=== PATIENT | male | born 1945 | race African-American/Black ===

== ENCOUNTER 2017-04-08 12:39 | Inpatient (IN) | payer OTHER, MEDICARE ==
[~2017-04-08] VITALS: Ht 165.1 cm; Wt 98.0 kg
[~2017-04-08 12:39] MED LIST: ACTOS30 MG; ANTIVERT25 MG PO; ASPIR-LOW81 MG PO; ASPIR-TRIN325 M1 PO; CIPRO500 MG PO; CLOPIDOGREL75 MG PO; DELTASONE20 M1 PO; DIOVAN HCT 11 TABLET PO; DIOVAN HCT 81 TABLET; GLIMEPIRIDE4 MG; GLIMEPIRIDE4 MG PO; HYDROCODON-ACE1 EAC7 PO; HYDROCODON-ACE1 EACH; INDOMETHACIN 25 MG; INDOMETHACIN25 MG PO; JANUVIA100 MG PO; K-DUR20 MEQ PO; LEVEMIR FL100 UNIT/1 SC; LEVOCETIRIZINE D5 MG; LEVOCETIRIZINE D5 MG PO; LISINOPRIL10 MG PO; LOPRESSOR25 MG PO; LOVAZA1 GM; LOVAZA1 GM PO; MECLIZINE HCL25 MG; MECLIZINE HCL25 MG PO; METFORMIN HCL500 M1 PO; NITROSTAT0.4 MG; PLAVIX75 MG PO; POTASSIUM CHLO10 ME3; TOPROL XL25 MG PO; VIAGRA50 MG; ZANTAC150 MG PO; ZETIA10 MG; ZETIA10 MG PO; [UNRECOGNIZED DRUG - SUPPLY]
[2017-04-08 13:18] LABS: HEMATOCRIT 42.6 % (38.0-50.0); MCH 28.3 PG (29.0-34.0); MCHC 33.3 G/DL (30.0-36.0); PLATELET COUNT 153 K/uL (156-360); RBC DIS.WIDTH-CV 13.5 % (11.8-14.6); RED BLOOD COUNT 5.01 M/uL (4.00-5.50); WHITE BLOOD COUNT 12.2 K/uL (4.1-10.2)
[2017-04-08 13:31] LABS: CHLORIDE 108 mEq/L (99-109); POTASSIUM 4.2 mEq/L (3.7-5.4); SODIUM 138 mEq/L (136-147)
[2017-04-08 13:33] LABS: GLUCOSE 269 mg/dL (70-99)
[2017-04-08 13:34] LABS: ANION GAP 9 MEQ/L (2-14)
[2017-04-08 13:37] LABS: GFR ESTIMATE (CALCULATED) 52 mL/min/
[2017-04-08 13:38] LABS: UREA NITROGEN (BUN) 25 mg/dL (9-23)
[2017-04-08 13:41] LABS: TROP-I INTERPRETATION NEGATIVE; TROPONIN-I 0.12 ng/mL (0.0-0.30)
[2017-04-08] MEDS ORDERED: PLAVIX75 MG PO (16:37)
[2017-04-08] MEDS ORDERED: LISINOPRIL20 MG PO (16:39)
[2017-04-08] MEDS ORDERED: EZETIMIBE10 MG PO (16:43)
[2017-04-08] MEDS ORDERED: COLCRYS0.6 MG PO (16:44)
[2017-04-08] MEDS ORDERED: AMLODIPINE BESYL5 MG PO (16:44)
[2017-04-08] MEDS ORDERED: LEVOCETIRIZINE D5 MG PO (16:45)
[2017-04-08] MEDS ORDERED: FLONASE ALLERG9.9 ML BOTH NARES (16:46)
[2017-04-08] MEDS ORDERED: 8HR ARTHRITIS650 MG PO (16:46)
[2017-04-08] MEDS ORDERED: NITROSTAT0.4 MG SL (16:47)
[2017-04-08 17:49] VITALS: BP 163/80
[2017-04-08 18:06] LABS: POINT-OF-CARE METER ID UU13113700
[2017-04-08 19:48] LABS: TROP-I INTERPRETATION POSITIVE
[2017-04-08 19:50] LABS: TROPONIN-I 3.12 ng/mL (0.0-0.30)
[2017-04-08 19:58] LABS: HDL CHOLESTEROL 49 MG/DL (Desirable>=40); LDL CHOLESTEROL 174 mg/dL (Desirable<100); NON-HDL CHOLESTEROL 206 mg/dL (Desirable<160); TOTAL CHOLESTEROL 255 mg/dL (Desirable<200); TRIGLYCERIDES 162 MG/DL (Normal: <150)
[2017-04-08 21:27] LABS: INTER. NORMALIZED RATIO 1.1; PROTHROMBIN TIME 11.9 SEC (10.2-12.9)
[2017-04-08 21:30] LABS: PTT 30.5 SEC (25-37)
[2017-04-08 21:53] LABS: POINT-OF-CARE METER ID UU13113831
[2017-04-09 00:05] VITALS: BP 123/62
[2017-04-09 02:06] LABS: TROP-I INTERPRETATION POSITIVE
[2017-04-09 02:29] LABS: TROPONIN-I 7.28 ng/mL (0.0-0.30)
[2017-04-09 02:40] VITALS: BP 141/76
[2017-04-09 03:40] LABS: HEMATOCRIT 40.4 % (38.0-50.0); MCH 28.5 PG (29.0-34.0); MCHC 33.7 G/DL (30.0-36.0); MCV 84.7 FL (86-99); MEAN PLAT.VOLUME 11.6 uM^3 (9.0-12.4); PLATELET COUNT 151 K/uL (156-360); RBC DIS.WIDTH-CV 13.7 % (11.8-14.6); RBC DIS.WIDTH-SD 42.4 % (39-53); RED BLOOD COUNT 4.77 M/uL (4.00-5.50); WHITE BLOOD COUNT 11.9 K/uL (4.1-10.2)
[2017-04-09 07:15] LABS: INTER. NORMALIZED RATIO 1.1; PROTHROMBIN TIME 12.5 SEC (10.2-12.9)
[2017-04-09 07:18] LABS: PTT 57.5 SEC (25-37)
[2017-04-09 07:20] VITALS: BP 142/71
[2017-04-09 07:21] LABS: TROP-I INTERPRETATION POSITIVE; TROPONIN-I 7.86 ng/mL (0.0-0.30)
[2017-04-09 12:41] VITALS: BP 128/69
[2017-04-09 20:06] LABS: POINT-OF-CARE METER ID UU13113675
[2017-04-09 21:35] VITALS: BP 121/82
[2017-04-09 22:05] LABS: POINT-OF-CARE METER ID UU13113781
[2017-04-09 22:52] LABS: PROTHROMBIN TIME 11.6 SEC (10.2-12.9)
[2017-04-09 22:55] LABS: PTT 28.5 SEC (25-37)
[2017-04-09 23:18] VITALS: BP 134/63
[2017-04-10 03:54] VITALS: BP 118/56
[2017-04-10 09:00] VITALS: BP 137/64
[2017-04-10 09:38] LABS: POINT-OF-CARE METER ID UU13113781
[2017-04-10 11:20] LABS: POINT-OF-CARE METER ID UU14174216
[2017-04-10 12:00] VITALS: BP 144/63
[2017-04-10 12:10] LABS: ANION GAP 11 MEQ/L (2-14); CHLORIDE 103 MEQ/L (99-109); GFR ESTIMATE (CALCULATED) > 59 mL/min/; GLUCOSE 204 mg/dL (70-99); POTASSIUM 4.2 MEQ/L (3.7-5.4); SAMPLE HEMOLYSIS CHECK 0; SAMPLE ICTERIC CHECK 0; SAMPLE LIPEMIA CHECK 0; SODIUM 136 MEQ/L (136-147); UREA NITROGEN (BUN) 16 mg/dL (9-23)
== END 2017-04-10 17:00 | disposition home or self-care (01) | DRG 247 ==
LOC: EME 12:39 → EDOF 16:34 → ENRESERV 16:55 → 5WEST 17:41 → ENRESERV 20:46 → 5WEST 04-09 19:13 → ENRESERV 04-09 19:25 → 4EAST 04-09 21:20 → ENPENDDIS 04-10 → 4EAST 04-10 17:00
PROVIDERS: Hospitalist; Internal Medicine; Physician Assistant
DX: I21.4 Non-ST elevation (NSTEMI) myocardial infarction (principal); E11.65 Type 2 diabetes mellitus with hyperglycemia; K21.9 Gastro-esophageal reflux disease without esophagitis; Z95.5 Presence of coronary angioplasty implant and graft; Z86.73 Personal history of transient ischemic attack (TIA), and cerebral infarction without residual deficits; E66.9 Obesity, unspecified; E78.5 Hyperlipidemia, unspecified; Z87.891 Personal history of nicotine dependence; Z68.38 Body mass index [BMI] 38.0-38.9, adult; N28.9 Disorder of kidney and ureter, unspecified; I25.110 Atherosclerotic heart disease of native coronary artery with unstable angina pectoris; I11.9 Hypertensive heart disease without heart failure; I25.2 Old myocardial infarction; I44.0 Atrioventricular block, first degree; M10.9 Gout, unspecified; M19.90 Unspecified osteoarthritis, unspecified site; Z79.4 Long term (current) use of insulin; Z79.02 Long term (current) use of antithrombotics/antiplatelets
CPT/HCPCS: 71020; 80048; 80061; 82948; 84484; 85027; 85347; 85610; 85730; 93005; 99281; 99284; C1725; C1769; C1874; C1887; J0461; J1644; J1815; J2250; J2405; J3010; J3246; J7030; J7040